=== PATIENT | female | born 1990 | race African-American/Black ===

== ENCOUNTER 2018-06-17 21:49 | Emergency (ER) | payer SELFPAY ==
[~2018-06-17] VITALS: Ht 154.9 cm; Wt 72.6 kg
[2018-06-17] MEDS ORDERED: NKM (22:14)
[2018-06-17 22:15] VITALS: BP 136/80
--- NOTE | 2018-06-17 22:21 | Emergency Room Report ---
History of Present Illness General Chief Complaint: upper extremity Pain Present Illness HPI Patient is a 28-year-old female brought in by EMS. 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 The patient reports being injured while being arrested. She reports having pain to the right upper extremity. The pain was noted to be the located in the right upper arm as well as the posterior shoulder. She denies any difficulty breathing. She denies other locations of pain. Patient denies any numbness or weakness. Allergies: Coded Allergies: No Known Allergies (Unverified , 06/17/18) Patient History Reviewed Nursing Documentation: PMH: Agreed; PSxH: Agreed Review of Systems All Other Systems: negative except mentioned in HPI Physical Exam General Appearance: well appearing, no apparent distress, alert, GCS 15 Head: normocephalic, atraumatic ENT: hearing grossly normal, normal voice Neck: full range of motion, supple Respiratory: no respiratory distress, speaking full sentences Musculoskeletal: normal inspection, back normal, normal range of motion, no calf tenderness Neurologic: normal inspection, alert, oriented x3, responsive, 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 Differential diagnosis included but was not limited to fracture, contusiovascular insufficiency, cellulitis. The x-ray imaging was ordered due to patient's location pain neurological fracture. Patient was noted to have normal range of motion. The x -ray of the right humerusThe 2 views interpreted by me showed normal bony alignment without fracture.The patient appears to have normal range of motion. There is no definitive injury noted however she may have some muscular injury which is not readily apparent .The patient is medically cleared for booking. Status: improved Disposition: D/C TO LAW ENFORCEMENT IN CUST Condition: Mateo Dumont MD Jun 17, 2018 22:21
[2018-06-17] MEDS ORDERED: ACETAMINOPHEN500 M3 ORAL (22:22)
[2018-06-17 22:28] VITALS: BP 136/80
--- NOTE | 2018-06-18 10:50 | Diagnostic Imaging Report ---
Indications: Shoulder pain Technique: Two views of the right humerus Comparison: None Findings: No acute fractures. No dislocations. Impression: Negative
== END 2018-06-17 22:28 ==
LOC: EMR 22:09
DX: S46.911A Strain of unspecified muscle, fascia and tendon at shoulder and upper arm level, right arm, initial encounter (principal); Y35.893A Legal intervention involving other specified means, suspect injured, initial encounter; Y92.89 Other specified places as the place of occurrence of the external cause
CPT/HCPCS: 99283